=== PATIENT | male | born 1960 | race Caucasian/White ===

== ENCOUNTER → 2019-07-29 14:40 | Outpatient (CLI) | payer OTHER, SELFPAY ==
--- NOTE | 2019-07-29 | DI.ECHO.S_ITS ---
[facility]---------+ [facility] +---------+ : : [address] : : : : [address] : : : : Phone: [phone]---------+ Echocardiogram Report + + :Name: WHITNEY NIEVES Study Date: 07/29/2019 Height: 69 in : :[facility] Weight: 180 lb : : Gender: Male BSA: 2.0 m2 : :: 1960 Age: 59 yrs BP: 130/82 mmHg: :Reason For Study: Mitral Valve- Regurgitation : :Ordering Physician: Oni : :Rafi Olmedo Performed By: Aly Hicks : :Referring: ONI OLMEDO : + + Interpretation Summary The left ventricle is normal in size. The ejection fraction is estimated to be 60-65%. The right ventricle is normal in size and function. An annuloplasty ring is noted in the mitral position. There is mild to moderate mitral regurgitation. Compared to the prior echo study, there has been no change in the severity of mitral regurgitation. The IVC is of normal diameter and collapses greater than 50% with a sniff. This suggests a low right atrial pressure of 3 mm Hg. Procedure: A two-dimensional transthoracic echocardiogram with color flow and Doppler was performed. The study quality was technically adequate. Prior echo performed on 04/02/17. The patient was in normal sinus rhythm during the exam. Left Ventricle: The left ventricle is normal in size. Proximal septal thickening is noted. There is no echo evidence for significant left ventricular outflow tract obstruction. There is no thrombus. Left ventricular systolic function is normal. The ejection fraction is estimated to be 60-65%. There has been no significant change since the previous study. Left ventricular wall motion is normal. MV E/A: 0.99 Med Peak E' Tre: 7.7 cm/sec E/E' med: 17.7. Right Ventricle: The right ventricle is normal in size and function. Atria: The left atrium is severely dilated. The left atrium has mildly increased in size since the prior echo exam. The right atrium is mildly dilated. The interatrial septum is intact with no evidence for an atrial septal defect. Mitral Valve: The mitral valve leaflets appear mildly thickened, but open well. There is moderate mitral annular calcification. An annuloplasty ring is noted in the mitral position. The mitral valve mean gradient is 4 mmHg. No significant mitral valve stenosis. There is mild to moderate mitral regurgitation. Compared to the prior echo study, there has been no change in the severity of mitral regurgitation. Aortic Valve: The aortic valve is trileaflet. The aortic valve opens well. No aortic regurgitation is present. Tricuspid Valve: The tricuspid valve is normal in structure and function. The right ventricular systolic pressure is estimated to be at least 20 mmHg based on an estimated right atrial pressure of 3 mm Hg. There is trace tricuspid regurgitation. Pulmonic Valve: The pulmonic valve is normal in structure and function. There is trace pulmonic regurgitation. Great Vessels: The aortic root is normal size. The dimensions of the ascending aorta are normal. The pulmonary artery is normal size. The IVC is of normal diameter and collapses greater than 50% with a sniff. This suggests a low right atrial pressure of 3 mm Hg. Pericardium/ Pleura There is no pericardial effusion. There is no pleural effusion. MMode/2D Measurements & Calculations LVIDd: 5.6 cm LVOT diam: 2.6 cm LVIDs: 3.6 cm Ao root diam: 3.6 cm FS: 35.0 % asc Aorta Diam: 3.3 cm EPSS: 0.96 cm IVSd: 0.97 cm LVPWd: 0.98 cm LV lewis. diameter/BSA (cm/m^2): 2.8 LV sys. diameter/BSA (cm/m^2): 1.8 LA A2 area: 27.1 cm2 RA long axis: 5.3 cm LA A4 area: 23.5 cm2 RA area: 17.9 cm2 LA length (vol): 5.5 cm RA vol: 50.8 ml LA vol: 98.1 ml RA : 25.7 ml/m2 LA vol index: 49.7 ml/m2 TAPSE: 2.0 cm Doppler Measurements & Calculations Ao V2 max: 113.3 cm/sec LVOT Max Tre: 91.4 cm/sec Ao V2 mean: 76.8 cm/sec LV V1 max P.3 mmHg Ao max P.1 mmHg LV V1 VTI: 20.9 cm Ao mean P.7 mmHg REN(I,D): 5.4 cm2 Ao V2 VTI: 20.9 cm REN(V,D): 4.3 cm2 sev ratio: 1.0 REN indexed to BSA (cm^2/m^2): 2.7 MV E max tre: 136.7 cm/sec TR max tre: 198.9 cm/sec MV A max tre: 137.6 cm/sec TR max P.8 mmHg MV E/A: 0.99 PA V2 max: 72.3 cm/sec Med Peak E' Tre: 7.7 cm/sec PA V2 mean: 52.8 cm/sec E/E' med: 17.7 PA mean P.2 mmHg Lat Peak E' Tre: 7.6 cm/sec PA Accel Time: 0.15 sec E/E' lat: 18.1 E/e' average: 17.9 MV dec time: 0.29 sec MVA(VTI): 2.3 cm2 MV V2 mean: 95.2 cm/sec SV(LVOT): 112.3 ml MV mean P.0 mmHg MV V2 VTI: 49.1 cm Reading Physician:01:18 PM
== END ==
PROVIDERS: Visit Provider Internal Medicine Cardiovascular Disease
DX: I34.0 Nonrheumatic mitral (valve) insufficiency (principal)
CPT/HCPCS: 93306

== ENCOUNTER → 2020-12-04 10:53 | Outpatient (CLI) | payer OTHER, SELFPAY ==
[2020-12-04 13:31] LABS: COVID19 -Nasal RAPID Negative (Negative)
== END ==
PROVIDERS: PCP Family Medicine; Visit Provider Student in an Organized Health Care Education/Training Program
DX: Z01.812 Encounter for preprocedural laboratory examination (principal); Z20.822 Contact with and (suspected) exposure to COVID-19
CPT/HCPCS: 87635

== ENCOUNTER 2020-12-06 10:59 | Day surgery (SDC) | payer OTHER, SELFPAY ==
--- NOTE | 2020-12-06 | PATH_ITS ---
[facility] Accession Number: [id number] . 01 Material submitted: . PART A: cecum - CECAL POLYP PART B: colon - ASCENDING COLON POLYP X2 PART C: colon - DESCENDING COLON POLYP . 02 Diagnosis: A. Cecum, Polyp, Biopsy: Serrated lesion, favor sessile serrated adenoma. . B. Ascending Colon, Polyp x2, Biopsy: Tubular adenoma. Sessile serrated adenoma. . C. Descending Colon, Polyp, Biopsy: Tubular adenoma. [facility] 12/11/2020 1047 Local . 02 Electronically signed: . Pamela Oneill MD, Pathologist NPI- [id number] . 01 Gross description: . Part A: CECAL POLYP: Received in formalin is 1 fragment(s) of rivers, soft tissue measuring 0.3 x 0.3 x 0.2 cm submitted entirely in 1 cassette(s) Part B: ASCENDING COLON POLYP X2: Received in formalin are 4 fragment(s) of rivers, soft tissue measuring 0.2 x 0.2 x 0.2 cm to 0.8 x 0.5 x 0.4 cm submitted entirely in 1 cassette(s) Part C: DESCENDING COLON POLYP : Received in formalin is 1 fragment(s) of rivers, soft tissue measuring 0.6 x 0.6 x 0.3 cm submitted entirely in 1 cassette(s) /JASWINDER 12/07/20201954 Local . 02 Pathologist provided ICD-10: D12.0, D12.2, D12.4 . 02 CPT . 583152, [id number], [id number] Performed at: [address], [place], [place] [id number] MD Osmel Looney MD Phone: [phone] Performed at: 02 [facility] [address] [place] [id number] MD Pamela Oneill MD Phone: [phone]
--- NOTE | 2020-12-06 08:03 | PM.HP.1 ---
History of Present Illness History of Present Illness Date Patient Seen: 12/06/20 Chief complaint: DX COLONOSOCPY W/POSS BX Narrative: 60-year-old male here for colon polyp surveillance; last colonoscopy 2011 however report is not available for review Patient History Medical History (Updated 12/06/20 @ 11:19 by Thao Valenzuela, RN) Inguinal hernia of left side with obstruction Mitral valve disorder Surgical History (Updated 12/06/20 @ 11:19 by Thao Valenzuela RN) H/O sinus surgery Meds Home Medications and Allergies Home Medications Medication Instructions Recorded Confirmed Type aspirin [Adult Low Dose Aspirin] 81 mg PO DAILY 12/06/20 12/06/20 History atorvastatin [Lipitor] 10 mg PO DAILY 12/06/20 12/06/20 History loratadine [Claritin] 10 mg PO DAILY 12/06/20 12/06/20 History Allergies Allergy/AdvReac Type Severity Reaction Status Date / Time No Known Drug Allergies Allergy Verified 12/06/20 11:15 Exam Narrative Exam Narrative: General: Patient is overweight, not in apparent distress Cardiovascular: Regular rate and rhythm, no murmurs, rubs, or gallops; no evidence of edema; no palpable abdominal aortic aneurysm Gastrointestinal: Normoactive bowel sounds, soft, nontender, nondistended, no rebound tenderness, no hepatosplenomegaly, no evidence of hernia Assessment & Plan Assessment & Plan narrative: 60-year-old male here for colon polyp surveillance, last colonoscopy 2011 Regarding the procedure(s), the risks and potential complications, benefits, and alternatives (including not doing the procedure) were discussed with the patient. The risks include but are not limited to bleeding, splenic injury, infection, perforation which may require surgical intervention, missed lesions, and adverse reactions to sedative medicines. After a question and answer period, the patient agreed to proceed with the procedure(s) and gives informed consent.
[2020-12-06 11:19] VITALS: BP 138/81; PULSE 90; RESP 16; TEMP 36.3; O2SAT 96; BMI 26.5
[2020-12-06] MEDS: SODIUM CHLORIDE 0.9% 1,000 ML 70 ML IV (11:28)
--- NOTE | 2020-12-06 11:35 | P.OP.ENDO_ITS ---
Operative Date/Time/Diagnoses Date of procedure: 12/06/20 Procedure Notes Procedure in detail: Surgeon: Wilver Lebron MD Procedure: Colonoscopy with polypectomy Preoperative diagnosis: Colon polyp surveillance Postoperative diagnosis: Colon polyps x6 status post polypectomy; grade 2 internal hemorrhoids Medications: Conscious sedation using 5 mg IV of Midazolam and 150 mcg IV of Fentanyl Preanesthesia Assessment An H and P was performed/updated and the Px?s ASA class is 2. The procedure was discussed in detail with the patient. The potential risks and complications including infection, bleeding, missed lesions, perforation, need for surgery in case of perforation, prolonged hospital stay, and were explained. A brief question and answer period was allotted and once all questions were answered, informed consent was obtained. The patient was brought back to the procedure room and placed on standard monitoring. The patient?s vital signs were monitored continuously throughout the entire procedure. Prior to starting, a timeout was performed to confirm the patient?s identity, allergies, medications, and procedure. Procedure in detail The patient was placed in left lateral decubitus position and once adequate sedation was obtained a DELILAH was performed. The digital rectal examination did not reveal any palpable lesions. The tip of the colonoscope was placed in the anal canal and advanced without difficulty all the way to the cecum which was identified by the appendiceal orifice and the ileocecal valve. Careful examination of all adam of the colon was performed with irrigation of any residual stool. In the cecum, there was note of a 2 mm sessile polyp which was removed by means of cold Jumbo forceps. Resection and retrieval was complete with minimal bleeding In the ascending colon, there was note of 3 sessile polyps measuring 4-6 mm which were removed by means of cold snare. Resection and retrieval was complete with minimal bleeding In the ascending colon, there was note of a 2 mm sessile polyp which was removed by means of cold Jumbo forceps. Resection and retrieval was complete with minimal bleeding In the descending colon, there was note of a 4 mm sessile polyp which was removed by means of cold snare. Resection retrieval was complete with minimal bleeding Retroflexion was performed in the rectum which revealed grade 2 internal hemorrhoids The patient tolerated the procedure well and will be brought back to the [facility] area to be discharged once criteria are met. The prep was judged to be good and adequate to identify polyps less than 5 mm. The withdrawal time was 16 minutes. The total physician intraservice time was 27 minutes. Complications There were no complications and estimated blood loss was minimal. Recommendations: Resume previous diet Continue outPx medications Follow up pathology results Repeat colonoscopy in 3 or 5 or 7 years depending on pathology results An emergency contact number was given to the patient for any complications related to the procedure
[2020-12-06] MEDS: MIDAZOLAM 5 MG/5 ML VIAL IV (12:27)
[2020-12-06] MEDS: fentaNYL 250 MCG/5 ML INJ IV (12:27)
[2020-12-06 12:53] VITALS: BP 117/78; PULSE 78; RESP 12; TEMP 36.1; O2SAT 98
[2020-12-06 12:58] VITALS: BP 117/73; PULSE 76; RESP 14; O2SAT 97
[2020-12-06 13:03] VITALS: BP 119/73; PULSE 74; RESP 18; O2SAT 96
[2020-12-06 13:08] VITALS: BP 113/74; PULSE 74; RESP 14; TEMP 37.3; O2SAT 97
[2020-12-06 13:31] VITALS: BP 110/74; PULSE 72; RESP 72; TEMP 36.6; O2SAT 97
== END 2020-12-06 13:35 | disposition home or self-care (01) ==
PROVIDERS: PCP Family Medicine; Referring Provider Internal Medicine Gastroenterology; Visit Provider Internal Medicine Gastroenterology
PROC: 0DJD8ZZ Inspection of Lower Intestinal Tract, Via Natural or Artificial Opening Endoscopic (ICD-10-PCS; CPT 45378; principal; 2020-12-06 12:30)
DX: Z12.11 Encounter for screening for malignant neoplasm of colon (principal); Z86.010 Personal history of colon polyps; K64.1 Second degree hemorrhoids; D12.0 Benign neoplasm of cecum; D12.2 Benign neoplasm of ascending colon; D12.4 Benign neoplasm of descending colon
CPT/HCPCS: 45385; 45380; J2250; J3010

== ENCOUNTER → 2020-12-15 07:03 | Outpatient (CLI) | payer OTHER, SELFPAY | PROVIDERS: PCP Family Medicine; Referring Provider Family Medicine; Visit Provider Family Medicine | DX: M25.511 Pain in right shoulder (principal) ==

== ENCOUNTER → 2020-12-19 07:37 | Outpatient (CLI) | payer OTHER, SELFPAY ==
--- NOTE | 2020-12-19 | DI.MRI.S_ITS ---
PROCEDURE: MR SHOULDER RT WO CON INDICATIONS: pain in right shoulder TECHNIQUE: Noncontrast oblique coronal T2 fast spin echo with fat saturation, oblique sagittal T1 spin echo and T2 fast spin echo with fat saturation, axial T1 spin echo and T2 fast spin echo with fat saturation through the shoulder. COMPARISON: None. FINDINGS: Rotator cuff: Supraspinatus tendinopathy with low-grade bursal and articular surface fraying. Infraspinatus and teres minor tendons appear intact. Subscapularis tendinopathy and thickening is present. There is low-grade articular surface fraying.. No atrophy of the rotator cuff muscles although there is fatty infiltration of the supraspinatus and infraspinatus muscles. Bones and bursae: No bone marrow contusions or fractures. Moderate hypertrophic acromioclavicular joint degeneration. Acromion demonstrates conventional anatomy, without an os acromiale. Zhzk-[id number] subacromial-subdeltoid bursitis. Capsule and soft tissues: Labrum: Incidental sublabral foramen is present. There is ill-defined tear of the posterosuperior labrum for example image 10/6. Minimal adjacent degenerative changes seen in the glenoid rim. There is also irregularity of the anteroinferior labrum in keeping with tear, and adjacent thickening/sprain of the anterior band of the inferior glenohumeral ligament. There is adjacent soft tissue edema. Biceps tendon: Long head of the biceps tendon intact. Rotator interval: Normal signal intensity. Coracohumeral ligament: Intact. IMPRESSION: Partial-thickness rotator cuff tear as detailed above. Evub-qc-jixxxojo subacromial-subdeltoid bursitis. Ill-defined tear of the posterosuperior labrum, and anteroinferior segment. Sprain of the anterior band of the inferior glenohumeral ligament with adjacent soft tissue edema. No definite glenoid or humeral avulsion fracture identified. Dictated by: Neel Eldridge M.D. on 12/19/2020 at 10:40 Approved by: Neel Eldridge M.D. on 12/19/2020 at 10:46
== END ==
PROVIDERS: PCP Family Medicine; Referring Provider Family Medicine; Visit Provider Family Medicine
DX: M25.511 Pain in right shoulder (principal); M75.111 Incomplete rotator cuff tear or rupture of right shoulder, not specified as traumatic; M75.51 Bursitis of right shoulder
CPT/HCPCS: 73221

== ENCOUNTER → 2022-09-05 13:13 | Outpatient (CLI) | payer OTHER, SELFPAY ==
--- NOTE | 2022-09-05 | DI.ECHO.S_ITS ---
[facility]---------+ [facility] +---------+ : : [address] : : : : [id number] : : : : Phone: [phone]---------+ Echocardiogram Report + + :Name: WHITNEY NIEVES Study Date: 09/05/2022 Height: 70 in : :[facility] ReadingLocation: Weight: 193 lb : : Gender: Male BSA: 2.1 m2 : :: 1960 Age: 62 yrs BP: 123/70 mmHg: :Reason For Study: S/P MITRAL VALVE REPAIR : :Ordering Physician: SHARA, : :ONI Performed By: Lorna Morse : :Referring: ONI OLMEDO : + + Interpretation Summary The left ventricle is normal in size. The ejection fraction is estimated to be 55-60%. The right ventricle is at the upper limits of normal in size. The right ventricular systolic function is normal. An annuloplasty ring is noted in the mitral position. There is mild to moderate mitral regurgitation. Compared to the prior echo study, there has been no change in the severity of mitral regurgitation. The mitral valve mean gradient is 4.3 mmHg. Previously 4 mmHg. There is mild tricuspid regurgitation. The right ventricular systolic pressure is estimated to be at least 26 mmHg based on an estimated right atrial pressure of 3 mm Hg. Procedure: A two-dimensional transthoracic echocardiogram with color flow and Doppler was performed. The study quality was technically adequate. Comparison is made with the echocardiogram of 07/29/2019. The patient was in sinus rhythm with heart rates between 69-73 bpm during the exam. Left Ventricle: The left ventricle is normal in size. There is mild concentric left ventricular hypertrophy. There is no thrombus. The ejection fraction is estimated to be 55-60%. Septal motion is consistent with post- operative state. MV E/A: 0.90 Med Peak E' Tre: 6.6 cm/sec E/E' med: 18.7. Right Ventricle: The right ventricle is at the upper limits of normal in size. The right ventricle appears to be hypertrophied. The right ventricular systolic function is normal. Atria: The left atrium is moderately dilated. The left atrium has mildly decreased in size since the prior echo exam. The right atrium is mildly dilated. There is no Doppler evidence for an interatrial shunt. Mitral Valve: There is moderate to severe mitral annular calcification. The mitral valve leaflets appear mildly thickened, but open well. An annuloplasty ring is noted in the mitral position. The mitral valve mean gradient is 4.3 mmHg. There is mild to moderate mitral regurgitation. Compared to the prior echo study, there has been no change in the severity of mitral regurgitation. Aortic Valve: The aortic valve is trileaflet. The aortic valve opens well. There is no aortic valve stenosis. No aortic regurgitation is present. Tricuspid Valve: There is mild tricuspid regurgitation. The right ventricular systolic pressure is estimated to be at least 26 mmHg based on an estimated right atrial pressure of 3 mm Hg. Pulmonic Valve: The pulmonic valve leaflets are thin and pliable; valve motion is normal. There is mild pulmonic regurgitation. Great Vessels: The aortic root is normal size. The dimensions of the ascending aorta are normal. The IVC is of normal diameter and collapses greater than 50% with a sniff. This suggests a low right atrial pressure of 3 mm Hg. Pericardium/ Pleura There is no pericardial effusion. There is an anterior echo-free space consistent with a fat pad. There is no pleural effusion. MMode/2D Measurements & Calculations LVIDd: 5.2 cm LVOT diam: 2.8 cm LVIDs: 3.7 cm Ao root diam: 3.8 cm FS: 29.8 % asc Aorta Diam: 3.9 cm IVSd: 1.0 cm Ao Arch Diam (Prox Trans): 3.6 cm LVPWd: 1.1 cm LV lewis. diameter/BSA (cm/m^2): 2.5 LV sys. diameter/BSA (cm/m^2): 1.8 LA A2 area: 21.9 cm2 RA long axis: 5.5 cm LA A4 area: 18.2 cm2 RA area: 23.0 cm2 LA length (vol): 5.2 cm RA vol: 82.3 ml LA vol: 65.0 ml RA : 40.0 ml/m2 LA vol index: 31.6 ml/m2 IVC diam: 0.88 cm RVD1 (basal): 4.1 cm TAPSE: 1.7 cm Doppler Measurements & Calculations Ao V2 max: 110.8 cm/sec LVOT Max Tre: 84.0 cm/sec Ao V2 mean: 83.3 cm/sec LV V1 max P.8 mmHg Ao max P.9 mmHg LV V1 VTI: 19.2 cm Ao mean P.0 mmHg REN(I,D): 5.1 cm2 Ao V2 VTI: 23.8 cm REN(V,D): 4.8 cm2 sev ratio: 0.81 REN indexed to BSA (cm^2/m^2): 2.5 MV E max tre: 124.0 cm/sec TR max tre: 237.4 cm/sec MV A max tre: 138.1 cm/sec TR max P.5 mmHg MV E/A: 0.90 PA V2 max: 88.3 cm/sec Med Peak E' Tre: 6.6 cm/sec PA V2 mean: 57.3 cm/sec E/E' med: 18.7 PA mean P.5 mmHg Lat Peak E' Tre: 7.4 cm/sec PA pr(Accel): 34.5 mmHg E/E' lat: 16.9 E/e' average: 17.8 MV dec time: 0.30 sec MVA(VTI): 2.6 cm2 MV V2 mean: 97.3 cm/sec SV(LVOT): 122.3 ml MV mean P.3 mmHg MV V2 VTI: 47.1 cm Reading Physician:04:30 PM
== END ==
PROVIDERS: PCP Family Medicine; Referring Provider Internal Medicine Cardiovascular Disease; Visit Provider Internal Medicine Cardiovascular Disease
DX: Z98.890 Other specified postprocedural states (principal); I08.1 Rheumatic disorders of both mitral and tricuspid valves
CPT/HCPCS: 93306

== ENCOUNTER 2023-03-22 06:38 | Emergency (ER) | payer OTHER, SELFPAY ==
[2023-03-22 06:55] VITALS: BP 124/67; PULSE 73; RESP 18; TEMP 36.3; O2SAT 94; BMI 27.2
--- NOTE | 2023-03-22 07:33 | PC.NURSE ---
pt states he has been having sore throat, using cough drops to help. denies feeling better or worse with hot and cold fluids. just states this morning he felt like there was a lump in his throat that he needed to cough out but it scared him because it felt like he was breathing through a straw because his throat was so constricted. pt states after he coughed some, it felt better and has felt okay since coming to ER
--- NOTE | 2023-03-22 07:45 | ED_ITS ---
HPI - General Adult General Chief complaint: Shortness of Breath/Dyspnea Stated complaint: Sore throat, restricted airway, diff breathing Time Seen by Provider: 03/22/23 06:40 Source: patient Mode of arrival: Ambulatory History of Present Illness HPI narrative: 62-year-old male former smoker with history of hyperlipidemia presents with a chief complaint of a sore throat since Friday. He is had some nasal congestion and occasional sneeze and cough. He denies any GI complaints such as nausea, vomiting or diarrhea. He denies any recent travel or exposure to other ill persons, he states he lives at home alone. He states that his sore throat seems to be worse at night and particularly bad in the morning but generally gets better throughout the course of the day. He is not take any Tylenol or Motrin for pain. Related Data Home Medications Medication Instructions Recorded Confirmed aspirin 81 mg tablet,delayed 81 mg PO DAILY 12/06/20 12/06/20 release (Adult Low Dose Aspirin) atorvastatin 10 mg tablet (Lipitor) 10 mg PO DAILY 12/06/20 12/06/20 loratadine 10 mg tablet (Claritin) 10 mg PO DAILY 12/06/20 12/06/20 Allergies Allergy/AdvReac Type Severity Reaction Status Date / Time No Known Drug Allergies Allergy Verified 12/06/20 11:15 Review of Systems Review of Systems Narrative: GENERAL: See HPI HEENT: See HPI RESPIRATORY: Denies dyspnea, cough, wheezing, hemoptysis, sputum. CARDIOVASCULAR: Denies chest pain, palpitations, orthopnea, edema, GASTROINTESTINAL: Denies nausea, vomiting, abdominal pain, diarrhea, constipation, melena. : Denies dysuria, frequency, incontinence, hematuria, urinary retention. MUSCULOSKELETAL: denies weakness, joint pain, or bony pain SKIN: Denies rash, skin lesions, or other NEUROLOGIC: Denies weakness, headache, numbness, change in speech, confusion, seizures, incoordination. PSYCHIATRIC: No concerning psychosocial issues. 12 point review of systems is negative except for those stated above Patient History Medical History Inguinal hernia of left side with obstruction Mitral valve disorder Surgical History H/O sinus surgery Social History household members: spouse Smoking Status: Former smoker alcohol intake: current Smoking Status: Former smoker alcohol intake frequency: holidays/special occasions only Substance Use Type: does not use Exam Narrative Exam Narrative: GEN: AOx3 and in mild distress, well-appearing, no respiratory distress EYES: Pupils are equal, round, and reactive to light and accommodation. Extraoccular muscles are intact bilaterally. There is no subconjunctival hemorrhage or exudate. ENT: Moderate clear postnasal drainage, no tonsillar swelling, erythema or exud ate, airway patent, no evidence of mass effect, no obvious tender lymphadenopathy. CHEST: Lungs are clear to auscultation bilaterally and free of wheezes, rales, or rhonchi. Heart rate is regular rhythm, there are no murmurs, clicks, rubs, or gallops. There is no chest wall tenderness. ABD: Abdomen is soft and nontender. There is no guarding or rebound. Bowel sounds are normal in all 4 quadrants. There is no mass or organomegaly. EXT: Full painless ROM of all extremities with no loss of sensation or strength. SKIN: Warm, pink, and dry. No erythema or rash Initial Vital Signs Initial Vital Signs: Vital Signs Temperature 97.4 F L 03/22/23 06:55 Pulse Rate 73 03/22/23 06:55 Respiratory Rate 18 03/22/23 06:55 Blood Pressure 124/67 03/22/23 06:55 Pulse Oximetry 94 03/22/23 06:55 Oxygen Delivery Method Room Air 03/22/23 06:55 Course Orders Ordered: Discontinued Medications Dexamethasone (Dexamethasone 10 Mg/Ml Vial) 10 mg PO NOW ONE Stop: 03/22/23 07:53 Last Admin: 03/22/23 08:26 Dose: 10 mg Documented By: NR Vital Signs Vital signs: Vital Signs - 8 hr 03/22/23 06:55 Temperature 97.4 F L Pulse Rate 73 Respiratory Rate 18 Blood Pressure 124/67 Pulse Oximetry 94 Oxygen Delivery Method Room Air Medical Decision Making Lab Data Labs: Lab Results 03/22/23 03/22/23 Range/Units 07:21 07:21 SARS-CoV-2 (PCR) Negative (Negative) Influenza A (RT-PCR) Flu a negative (NEGATIVE) Influenza B (RT-PCR) Flu b negative (NEGATIVE) RSV (PCR) Negative (Negative) Group A Strep (PCR) Negative (Negative) MDM Narrative Medical decision making narrative: [62] year old patient presents with various upper respiratory symptoms including nasal congestion, sore throat and occasional cough in the absence of fever Multiple etiologies for patient's symptoms considered including, but not limited to: [COVID versus flu versus other viral etiology versus strep versus other] Prior Charts reviewed in our EMR Primary Historian: patient Labs reviewed and interpreted by myself: Rapid strep demonstrates [NEG], respiratory panel demonstrates NEG History and physical exam are reassuring and patient is in no significant distress, multiple mild upper respiratory symptoms, primary complaint sore throat, no work of breathing, use of accessory muscles, stable vitals, reassuring exam Patient's symptoms improved over duration of stay with above-stated therapies. Findings and discharge diagnosis discussed with patient/family followed by verbalization of understanding Return precautions discussed with patient/family whom verbalize understanding of diagnosis and plan Discharge Plan Departure Patient Disposition: Home Clinical Impression: Pharyngitis Instructions: DI for Pharyngitis/Tonsillopharyngitis -- Adult Activity Restrictions/Additional Instructions: *You have been diagnosed with [various symptoms due to viral upper respiratory infection. Your rapid strep test was negative and the swab for COVID and flu is also negative. There is a throat culture in the lab that will take a few days to result, we will call you if there are abnormal findings that would require specific intervention *What to do: *Please consider the use of [id number] antihistamines such as Zyrtec, Mihaela, or Claritin which can dry the secretions that are causing many of these symptoms. *Please use [id number] Tylenol or Motrin for pain, it can be helpful to take it on a schedule for a few days to get ahead of the pain and inflammation * your history and physical exam are very reassuring and there is no indication that the symptoms are due to a bacterial infection, therefore there is no indication for antibiotics. *Please follow up with your primary care provider in 2-3 days, call for an appointment. Let them know you were seen in the Emergency Department and that we ask that you be seen in follow up. We will electronically transmit a record of today's note if your PCP is in our system *If you do not have a primary care provider please contact the [facility] Resource line at [phone]. They will ask some questions about your medical history and help get you set up with a doctor in the community. *Return to Emergency Department if you should have any new, worsening or concerning symptoms such as difficulty breathing, persistent vomiting, shaking chills or other concerning symptoms Prescriptions: No Action atorvastatin [Lipitor] 10 mg tablet 10 mg PO DAILY aspirin [Adult Low Dose Aspirin] 81 mg tablet,delayed release (DR/EC) 81 mg PO DAILY loratadine [Claritin] 10 mg tablet 10 mg PO DAILY Referrals: Vimal Corona MD [Primary Care Provider] - Stand Alone Forms: Patient Portal/API
[2023-03-22 07:47] LABS: Strep Grp A by PCR Rapid Negative (Negative)
[2023-03-22 08:07] LABS: Influenza A - CEPHEID Flu A NEGATIVE (NEGATIVE); Influenza B - CEPHEID Flu B NEGATIVE (NEGATIVE); Respiratory Syncytial Virus Negative (Negative)
[2023-03-22 08:12] LABS: COVID-19 CEPHEID 4-PLEX PCR Negative (Negative)
[2023-03-22] MEDS: DEXAMETHASONE 10 MG/ML VIAL PO (08:26)
[2023-03-22 08:33] VITALS: BP 117/63; PULSE 68; RESP 16; O2SAT 96
== END 2023-03-22 08:34 | disposition home or self-care (01) ==
PROVIDERS: Emergency Provider Emergency Medicine; PCP Family Medicine
DX: J02.9 Acute pharyngitis, unspecified (principal); Z20.822 Contact with and (suspected) exposure to COVID-19
CPT/HCPCS: 0241U; 87070; 87651; 99283; J1100